=== PATIENT | female | born 1985 | race Caucasian/White ===

== ENCOUNTER 2018-06-03 21:19 | Emergency (ER) | payer OTHER ==
[~2018-06-03] VITALS: Ht 165.1 cm; Wt 99.3 kg
[~2018-06-03 21:19] MED LIST: IRON1 TA1 PO; PRENATAL TABLE1 EAC1 PO
== END 2018-06-03 22:57 | disposition home or self-care (01) ==
LOC: ER 21:19
DX: J31.2 Chronic pharyngitis (principal)

== ENCOUNTER 2018-11-30 15:01 | Outpatient (CLI) | payer OTHER | END 2018-11-30 20:59 | disposition home or self-care (01) | LOC: NST 15:01 | DX: Z34.83 Encounter for supervision of other normal pregnancy, third trimester (principal) ==

== ENCOUNTER 2018-12-07 12:06 | Outpatient (CLI) | payer OTHER | END 2018-12-07 13:11 | disposition home or self-care (01) | LOC: NST 12:06 | DX: Z34.83 Encounter for supervision of other normal pregnancy, third trimester (principal) ==

== ENCOUNTER 2018-12-14 12:06 | Outpatient (CLI) | payer OTHER | END 2018-12-14 13:12 | disposition home or self-care (01) | LOC: NST 12:06 | DX: Z34.83 Encounter for supervision of other normal pregnancy, third trimester (principal) ==

== ENCOUNTER 2018-12-21 11:00 | Inpatient (IN) | payer OTHER ==
[~2018-12-21] VITALS: Ht 165.1 cm; Wt 2.7 kg
[2018-12-21] MEDS ORDERED: PRENATE ELITE1 EAC2 PO (13:14)
== END 2019-01-02 12:52 | disposition home or self-care (01) | DRG 785 ==
LOC: O/R 12-30 05:38 → LDR 12-30 05:38 → OB/GYN 12-30 11:00
PROVIDERS: ADMIT Obstetrics & Gynecology
PROC: 0UL70ZZ Occlusion of Bilateral Fallopian Tubes, Open Approach (ICD-10-PCS; 2018-12-30)
PROC: 4A1HXCZ Monitoring of Products of Conception, Cardiac Rate, External Approach (ICD-10-PCS; 2018-12-30)
PROC: 10D00Z1 Extraction of Products of Conception, Low, Open Approach (ICD-10-PCS; principal; 2018-12-30 16:45)
DX: O82 Encounter for cesarean delivery without indication (principal); Z3A.37 37 weeks gestation of pregnancy; Z37.2 Twins, both liveborn; Z30.2 Encounter for sterilization

== ENCOUNTER 2018-12-21 13:34 | Outpatient (CLI) | payer OTHER ==
[~2018-12-21 13:34] MED LIST changes: +PRENATE ELITE1 EAC2 PO
== END 2018-12-21 15:04 ==
LOC: NST 13:34
DX: Z34.83 Encounter for supervision of other normal pregnancy, third trimester (principal)